=== PATIENT | female | born 1965 | race Asian ===

== ENCOUNTER 2023-01-17 15:31 | Emergency (ER) | payer OTHER ==
[~2023-01-17] VITALS: Ht 165.1 cm; Wt 91.0 kg
[2023-01-17 15:44] VITALS: O2SAT 100
[2023-01-17 15:46] VITALS: TEMP 98.5
[2023-01-17 16:50] LABS: CLARITY URINE CLEAR (CLEAR); COLOR URINE YELLOW (YELLOW); GLUCOSE URINE 3+ (NEGATIVE); KETONES URINE NEGATIVE (NEGATIVE); LEUKOCYTE ESTERASE URINE TRACE (NEGATIVE); NITRITE URINE NEGATIVE (NEGATIVE); OCCULT BLOOD URINE NEGATIVE (NEGATIVE); PROTEIN URINE NEGATIVE (NEGATIVE); SPECIFIC GRAVITY URINE 1.023 (1.005-1.030)
[2023-01-17 17:08] LABS: BACTERIA URINE TRACE; RBC URINE NONE SEEN /hpf (0-2); SQUAMOUS EPITHELIAL CELL URINE 1+ /lpf (RARE/1+)
[2023-01-17] MEDS ORDERED: NITR-87 MT (18:05)
[2023-01-17] MEDS ORDERED: FLUC150T46 MT (18:05)
[2023-01-17] MEDS ORDERED: PHEN-910 MT (18:06)
[2023-01-17] MEDS ORDERED: ACET-2708 MT (18:06)
[2023-01-17 18:53] VITALS: BP 140/77; PULSE 87; RESP 20
== END 2023-01-17 18:56 | disposition home or self-care (01) ==
LOC: ER 15:31
DX: N39.0 Urinary tract infection, site not specified (principal); I10 Essential (primary) hypertension; E11.9 Type 2 diabetes mellitus without complications; Z98.890 Other specified postprocedural states; Z86.39 Personal history of other endocrine, nutritional and metabolic disease
CPT/HCPCS: 81003; 87077; 87186; 93005; 99284

== ENCOUNTER → 2024-03-06 | Outpatient (CLI) | payer BC ==
[~2024-03-06] MED LIST: ACET-2708 MT; FLUC150T46 MT; NITR-87 MT; PHEN-910 MT
[2024-03-06 08:32] LABS: BASOPHILS % 1.1 % (0.0-2.0); EOSINOPHILS % 4.8 % (0.0-5.0); HEMATOCRIT. 38.7 % (36.0-48.0); LYMPHOCYTES % 19.9 % (20.0-50.0); MEAN CORPUSCULAR HEMOGLOBIN 30.8 pg (28.0-32.0); MEAN CORPUSCULAR HGB CONC 33.7 g/dL (31.0-37.0); MEAN CORPUSCULAR VOLUME 91.5 fL (81.0-99.0); MEAN PLATELET VOLUME 9.1 fl (7.4-10.4); MONOCYTES % 4.6 % (2.0-8.0); NEUTROPHILS % 69.6 % (40.0-76.0); PLATELET 237 x1000/uL (130-400); RED BLOOD CELL COUNT 4.23 mill/uL (4.2-5.4); RED CELL DISTRIBUTION WIDTH 13.5 % (11.6-14.6); WHITE BLOOD COUNT 6.4 x1000/uL (4.5-11.0)
[2024-03-06 08:45] LABS: CLARITY URINE CLEAR (CLEAR); COLOR URINE YELLOW (YELLOW); GLUCOSE URINE 3+ (NEGATIVE); KETONES URINE TRACE (NEGATIVE); LEUKOCYTE ESTERASE URINE NEGATIVE (NEGATIVE); NITRITE URINE NEGATIVE (NEGATIVE); OCCULT BLOOD URINE NEGATIVE (NEGATIVE); PROTEIN URINE NEGATIVE (NEGATIVE); UROBILINOGEN URINE 0.2 E.U./dL (0.2-1.0)
[2024-03-06 08:48] LABS: CARBON DIOXIDE 27 mEq/L (21-32); CHLORIDE 98 mEq/L (98-107); POTASSIUM 4.2 mEq/L (3.5-5.1); SODIUM 134 mEq/L (136-145)
[2024-03-06 08:49] LABS: CALCIUM 10.1 mg/dL (8.7-10.4)
[2024-03-06 08:53] LABS: CREATININE 1.1 mg/dL (0.6-1.0); GLUCOSE 376 mg/dL (70-105); IRON 63 ug/dL (50-170)
[2024-03-06 08:54] LABS: LDL CHOLESTEROL 133 mg/dL (5-100); TRIGLYCERIDE 348 mg/dL (0-150); UREA NITROGEN BLOOD 12 mg/dL (9-23)
[2024-03-06 08:55] LABS: ALANINE AMINOTRANSFERASE 16 IU/L (10-49); ALBUMIN 4.6 g/dL (3.2-4.8); ASPARTATE AMINOTRANSFERASE 16 IU/L (<34); CHOLESTEROL 230 mg/dL (<200); HDL CHOLESTEROL 45 mg/dL (>65)
[2024-03-06 08:56] LABS: BILIRUBIN TOTAL 1.1 mg/dL (0.1-1.0); TOTAL IRON BINDING CAPACITY 289 ug/dl (250-425)
[2024-03-06 09:40] LABS: BACTERIA URINE NONE SEEN; RBC URINE 0-2 /hpf (0-2); SQUAMOUS EPITHELIAL CELL URINE 1+ /lpf (RARE/1+); WBC URINE 0-2 /hpf (0-2); YEAST URINE 2+
[2024-03-07 09:06] LABS: *CREATININE RANDOM URINE 64.1 mg/dL (Not Estab.); MICROALBUMIN RANDOM URINE 18.1 ug/mL (Not Estab.)
== END | disposition home or self-care (01) ==
LOC: LAB 06:35
DX: Z00.01 Encounter for general adult medical examination with abnormal findings (principal)
CPT/HCPCS: 36415; 80053; 80061; 81003; 82043; 82306; 82570; 83036; 83540; 83550; 84450; 84460; 85025

== ENCOUNTER 2024-07-21 17:16 | Emergency (ER) | payer BC ==
[~2024-07-21] VITALS: Ht 162.6 cm; Wt 69.0 kg
[2024-07-21 17:18] VITALS: O2SAT 0
[2024-07-21 19:18] LABS: CHLORIDE 102 mEq/L (98-107); EOSINOPHILS % 4.2 % (0.0-5.0); HEMATOCRIT. 35.8 % (36.0-48.0); HEMOGLOBIN. 11.8 g/dL (12.0-16.0); LYMPHOCYTES % 29.5 % (20.0-50.0); MEAN CORPUSCULAR HEMOGLOBIN 29.8 pg (28.0-32.0); MEAN CORPUSCULAR HGB CONC 32.9 g/dL (31.0-37.0); MEAN CORPUSCULAR VOLUME 90.3 fL (81.0-99.0); MONOCYTES % 5.2 % (2.0-8.0); NEUTROPHILS % 60.1 % (40.0-76.0); PLATELET 289 x1000/uL (130-400); POTASSIUM 4.2 mEq/L (3.5-5.1); RED BLOOD CELL COUNT 3.97 mill/uL (4.2-5.4); RED CELL DISTRIBUTION WIDTH 14.3 % (11.6-14.6); SODIUM 137 mEq/L (136-145); WHITE BLOOD COUNT 6.3 x1000/uL (4.5-11.0)
[2024-07-21 19:19] LABS: CALCIUM 10.5 mg/dL (8.7-10.4); CARBON DIOXIDE 27 mEq/L (21-32)
[2024-07-21 19:24] LABS: CREATININE 1.1 mg/dL (0.6-1.0); GLUCOSE 328 mg/dL (70-105); UREA NITROGEN BLOOD 16 mg/dL (9-23)
[2024-07-21 19:26] LABS: TROPONIN I HIGH SENSITIVITY 8 ng/L (3.0-34)
[2024-07-21] MEDS: GABAPENTIN 300MG CAPSULE PO ONE (19:58)
[2024-07-21 20:00] VITALS: BP 133/61; PULSE 85; RESP 13; TEMP 36.7; O2SAT 100
== END 2024-07-21 21:05 | disposition home or self-care (01) ==
LOC: ER 17:16
DX: R07.89 Other chest pain (principal); E11.9 Type 2 diabetes mellitus without complications; I25.10 Atherosclerotic heart disease of native coronary artery without angina pectoris; I10 Essential (primary) hypertension; Z79.899 Other long term (current) drug therapy; Z86.39 Personal history of other endocrine, nutritional and metabolic disease
CPT/HCPCS: 36415; 71045; 80048; 83880; 84484; 85025; 99284

== ENCOUNTER → 2024-08-04 | Outpatient (CLI) | payer BC ==
[~2024-08-04] MED LIST changes: +IOHEXOL-350 100 ML BOTTLE ONE
[2024-08-04 08:51] LABS: BASOPHILS % 1.2 % (0.0-2.0); EOSINOPHILS % 4.5 % (0.0-5.0); HEMATOCRIT. 34.2 % (36.0-48.0); HEMOGLOBIN. 11.2 g/dL (12.0-16.0); LYMPHOCYTES % 20.3 % (20.0-50.0); MEAN CORPUSCULAR HEMOGLOBIN 29.4 pg (28.0-32.0); MEAN CORPUSCULAR HGB CONC 32.7 g/dL (31.0-37.0); MEAN CORPUSCULAR VOLUME 89.9 fL (81.0-99.0); MEAN PLATELET VOLUME 7.7 fl (7.4-10.4); MONOCYTES % 4.9 % (2.0-8.0); NEUTROPHILS % 69.1 % (40.0-76.0); PLATELET 386 x1000/uL (130-400); RED BLOOD CELL COUNT 3.81 mill/uL (4.2-5.4); RED CELL DISTRIBUTION WIDTH 14.1 % (11.6-14.6); WHITE BLOOD COUNT 7.4 x1000/uL (4.5-11.0)
[2024-08-04 09:01] LABS: CARBON DIOXIDE 30 mEq/L (21-32); CHLORIDE 99 mEq/L (98-107); POTASSIUM 4.5 mEq/L (3.5-5.1); SODIUM 138 mEq/L (136-145)
[2024-08-04 09:02] LABS: CALCIUM 10.3 mg/dL (8.7-10.4)
[2024-08-04 09:07] LABS: GLUCOSE 151 mg/dL (70-105); TRIGLYCERIDE 202 mg/dL (0-150); UREA NITROGEN BLOOD 15 mg/dL (9-23)
[2024-08-04 09:08] LABS: LDL CHOLESTEROL 99 mg/dL (5-100)
[2024-08-04 09:09] LABS: ALANINE AMINOTRANSFERASE 108 IU/L (10-49); ALBUMIN 4.3 g/dL (3.2-4.8); ASPARTATE AMINOTRANSFERASE 21 IU/L (<34); BILIRUBIN TOTAL 0.7 mg/dL (0.1-1.0); CHOLESTEROL 176 mg/dL (<200); HDL CHOLESTEROL 37 mg/dL (>65); PROTEIN TOTAL 7.9 g/dL (6.0-8.3)
[2024-08-04 09:11] LABS: THYROID STIMULATING HORMONE 22.95 uIU/mL (0.55-4.78)
[2024-08-04 10:24] LABS: CLARITY URINE CLEAR (CLEAR); COLOR URINE YELLOW (YELLOW); GLUCOSE URINE 3+ (NEGATIVE); KETONES URINE NEGATIVE (NEGATIVE); LEUKOCYTE ESTERASE URINE NEGATIVE (NEGATIVE); NITRITE URINE NEGATIVE (NEGATIVE); OCCULT BLOOD URINE NEGATIVE (NEGATIVE); PROTEIN URINE NEGATIVE (NEGATIVE); UROBILINOGEN URINE 0.2 E.U./dL (0.2-1.0)
[2024-08-04 12:31] LABS: BACTERIA URINE 2+; RBC URINE 0-2 /hpf (0-2); SQUAMOUS EPITHELIAL CELL URINE FEW /lpf (RARE/1+); YEAST URINE NONE SEEN
== END | disposition home or self-care (01) ==
LOC: CT 08:16
PROVIDERS: ATTEND Family Medicine
DX: K80.20 Calculus of gallbladder without cholecystitis without obstruction (principal); R16.0 Hepatomegaly, not elsewhere classified; J98.11 Atelectasis; K82.8 Other specified diseases of gallbladder; I12.9 Hypertensive chronic kidney disease with stage 1 through stage 4 chronic kidney disease, or unspecified chronic kidney disease; E11.22 Type 2 diabetes mellitus with diabetic chronic kidney disease; N18.9 Chronic kidney disease, unspecified; E11.69 Type 2 diabetes mellitus with other specified complication; E03.9 Hypothyroidism, unspecified; E78.5 Hyperlipidemia, unspecified; N28.89 Other specified disorders of kidney and ureter
CPT/HCPCS: 74178; 80061; 80053; 81003; 83036; 84443; 85025; 36415; Q9967